=== PATIENT | male | born 1960 | race Caucasian/White ===

== ENCOUNTER → 2017-11-07 | Outpatient (CLI) | payer OTHER | LOC: FIMAGING 16:24 | PROVIDERS: ATTEND Orthopaedic Surgery | DX: M79.605 Pain in left leg (principal); M79.89 Other specified soft tissue disorders ==

== ENCOUNTER 2018-11-17 12:38 | Inpatient (IN) | payer OTHER ==
[2018-11-17] MEDS ORDERED: ACETAMINOPHEN 325 MG TAB PO PRN (14:24)
[2018-11-17] MEDS ORDERED: ONDANSETRON DISINTEGRATING 4 MG TAB PO PRN (14:24)
[2018-11-17] MEDS ORDERED: ONDANSETRON 4 MG/2 ML VIAL IVP PRN (14:24)
[2018-11-17] MEDS ORDERED: oxyCODONE IR 5 MG TAB PO PRN (14:24)
[2018-11-17] MEDS ORDERED: NS 1,000 ML IV ONE (14:32)
[2018-11-17] MEDS ORDERED: POTASSIUM CL 20 MEQ/15 ML UDCUP PO ONE (14:42)
[2018-11-17] MEDS ORDERED: IBUPROFEN 600 MG TAB PO PRN (15:27)
[2018-11-17] MEDS ORDERED: IBUPROFEN 600 MG TAB PO ONE (15:29)
--- NOTE | 2018-11-17 15:29 | PDGENHP ---
History and Physical - Chief Complaint chills, myalgias, hematuria - History of Present Illness 58 yo male with h/o CAD and prior CA 10 yrs ago with LAD and diagonal stents presents to ED from urgent care with hematuria, chills and myalgias. His symptoms started 3 weeks ago with decreased urine flow and difficulty emptying his bladder. He then developed CP and he went to [facility], where a cath revealed in- stent restenosis. He thinks he had a fresh stent, but per my conversation with Cards, they did just balloon angioplasty. He has been on ASA 81 mg and Plavix since then. His urinary flow problems persisted and 2 days prior to arrival, he developed fever of 101. Fevers persisted over past 2 days. He also endorses dysuria and urinary frequency. He denies focal flank pain. No N/V. He noted "chunks" of blood in his bladder this morning and fever to 102. He went to urgent care where his UA showed wbc's "too many to count", along with hematuria and 4+ bacteria. He received 1 g IV Ceftriaxone and was sent to [facility] for direct admission. Upon arrival, he is febrile to 39.2 with mild tachycardia , but BP is stable. History Information - Allergies/Home Medication List Allergies/Adverse Reactions: codeine [Codeine] Allergy (Mild, Verified 07/19/10 15:05) ITCHY Home Medications: Clopidogrel Bisulfate [Plavix (RX)] 75 mg PO DAILY 02/17/13 [Last Taken 11/17/18 ] ALPRAZolam [Xanax 1 MG (*)] 0.5 - 1 mg PO DAILY PRN 11/17/18 [Last Taken ] Acetaminophen [Tylenol ES 500 mg (*)] 1,000 mg PO Q3HRS 11/17/18 [Last Taken 12/31 05:00] Aspirin EC [Aspirin EC 81 mg (*)] 81 mg PO DAILY 11/17/18 [Last Taken 11/17/18] Atorvastatin Calcium [Lipitor 40 mg (*)] 40 mg PO DAILY 11/17/18 [Last Taken 12/31] Metoprolol Tartrate [Lopressor 25 mg (*)] 12.5 mg PO BID 11/17/18 [Last Taken ] Nitroglycerin [Nitrostat] 0.4 mg SL Q5M PRN 11/17/18 [Last Taken Unknown] Tamsulosin HCl [Flomax 0.4 MG (*)] 0.4 mg PO BIDMEAL 11/17/18 [Last Taken ] I have personally reviewed and updated: family history, medical history, social history, surgical history - Past Medical History coronary artery disease, hyperlipidemia Additional medical history: CAD with h/o CA 2008, LAD and diagonal stents at that time. Balloon angioplasty at [facility] 10/2018 for in-stent stenosis. H/O prostatitis - Surgical History Reports: coronary stent Additional surgical history: knee surgery 2018. back surgery L3-L4 - Family History Positive for: non-pertinent - Social History Smoking Status: Former smoker Alcohol Use: None Drug Use: None Additional social history: Quit tobacco 1-2 weeks ago. 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 Review of Systems Review of Systems: ROS: 10pt was reviewed & negative except for what was stated in HPI & below Physical Exam Physical Exam: Temp Pulse Resp BP Pulse Ox 39.3 C H 106 H 18 149/77 H 91 L 11/17/18 14:12 11/17/18 14:12 11/17/18 14:12 11/17/18 14:12 11/17/18 14:12 Constitutional: no apparent distress Eyes: PERRL Ears, Nose, Mouth, Throat: moist mucous membranes Cardiovascular: regular rate and rhythym, no murmur, rub, or gallop Respiratory: no respiratory distress, clear to auscultation Gastrointestinal: normoactive bowel sounds, soft, non-tender abdomen Skin: warm Musculoskeletal: full muscle strength Neurologic: AAOx3 Psychiatric: interacting appropriately Lab Data & Imaging Review VBG Lactic Acid 1.0 mmol/L (0.7-2.1) 11/17/18 14:50 Assessment & Plan Assessment: Sepsis 2/2 urinary source - SIRS criteria: HR, Temp, UTI. Possibly obstructive prostate symptoms / prostatitis with gross hematuria. UA at [facility] [place] [place] showed marked pyuria, hematuria, 4+ bacteria. He received 1 g IV Ceftriaxone at [facility] [place] [place]. -send BCx's, UA and UCx -send lactate (nl) and PCT (pending) -cont Ceftriaxone, received first dose at [facility] [place] [place] -renal u/s now to evaluate for SOLORZANO -will likely need to place villarreal for hematuria with clots, will await u/s -cont flomax -Dr. Tello, urologist, consulted from [facility] CAD with h/o CA - prior LAD and diagonal stents. Pt thinks he had fresh stent at [facility] 2 weeks ago when he presented with CP and cath showed in-stent stenosis. I discussed the case with Dr. David Perez, [facility] the [facility], who clarified he had balloon angioplasty to a diagonal lesion, but no new stent. He has been on ASA and plavix since then. He is chest pain free here. -cont ASA plus Plavix (acknowledge hematuria, but risk of in-stent thrombosis outweighs bleeding risk currently with nl hgb and stable vitals) -cont BB, statin Hyperlipidemia - statin DVT PPLX - defer pharm with hematuria and DAPT, SCD's Full code Dispo - admit to inpt, anticipate >48 hrs hospitalization for management of sepsis, UTI, hematuria
[2018-11-17] MEDS ORDERED: NITROGLYCERIN 0.4 MG BTL SL PRN (15:44)
[2018-11-17] MEDS ORDERED: ALPRAZolam 1 MG TAB PO PRN (15:44)
[2018-11-17] MEDS: TAMSULOSIN HCL 0.4 MG CAP PO SCH (16:07)
--- NOTE | 2018-11-17 18:33 | PDMN ---
Medical Necessity Medical necessity: [facility] M160 sepsis and other febrile illness: sepsis 2/2 urinary source SIRS criteria: tachycardia, fever, UTI. poss obstructive prostate symptoms, prostatitis with gross hematuria, anticipate > 2 MN ongoing med nec care, further monitoring eval and tx.
[2018-11-17] MEDS: METOPROLOL TARTRATE 25 MG TAB PO SCH (20:03)
[2018-11-17] MEDS: HYDROCODONE/APAP 5/325 TAB PO PRN (20:03)
--- NOTE | 2018-11-17 21:53 | HOSPPROG ---
Hospitalist Progress Note Assessment/Plan: Sepsis 2/2 urinary source - SIRS criteria: HR, Temp, UTI. Possibly obstructive prostate symptoms / prostatitis with gross hematuria. [place] [facility] [place] pyuria, hematuria, 4+ bacteria. He received 1 g IV Ceftri[place] [facility] [place] -send BCx's, UA and UCx -send lactate (nl) and PCT (pending) -cont Ceftriaxone, received [place] dose [place] [facility] [place] -renal u/s now to evaluate for SOLORZANO -will likely need to place villarreal for hematuria with clots, will await u/s -cont flomax -Dr. Tello, urologist, consulted from [facility] with h/o DC - prior LAD and diagonal stents. Pt thinks he had fresh stent at [facility] 2 weeks ago when he presented with CP and cath showed in-stent stenosis. I discussed the case with Dr. David Perez, [facility], who clarified he had balloon angioplasty to a diagonal lesion, but no new stent. He has been on ASA and plavix since then. He is chest pain free here. -cont ASA plus Plavix (acknowledge hematuria, but risk of in-stent thrombosis outweighs bleeding risk currently with nl hgb and stable vitals) -cont BB, statin Hyperlipidemia - statin DVT PPLX - defer pharm with hematuria and DAPT, SCD's Full code Objective: Vital Signs Temp Pulse Resp BP Pulse Ox 36.7 C 81 18 129/72 H 92 11/17/18 20:00 11/17/18 20:00 11/17/18 20:00 11/17/18 20:00 11/17/18 20:00 11/16/18 11/17/18 11/18/18 06:59 06:59 06:59 Intake Total 1000 Balance 1000 ICD10 Worksheet Patient Problems: Problems Problem Status Onset CAD - Coronary arteriosclerosis Active
[2018-11-18] MEDS: HYDROCODONE/APAP 5/325 TAB PO PRN ×4 (02:41→20:49)
[2018-11-18 04:58] LABS: PLATELET COUNT 135 10^3/uL (150-400)
[2018-11-18] MEDS: ATORVASTATIN CALCIUM 40 MG TAB PO SCH (08:33)
[2018-11-18] MEDS: ASPIRIN EC 81 MG TAB PO SCH (08:33)
[2018-11-18] MEDS: METOPROLOL TARTRATE 25 MG TAB PO SCH ×2 (08:33→20:49)
[2018-11-18] MEDS: TAMSULOSIN HCL 0.4 MG CAP PO SCH ×2 (08:33→17:15)
[2018-11-18] MEDS: CLOPIDOGREL BISULFATE 75 MG TAB PO SCH (08:33)
[2018-11-18] MEDS ORDERED: ENOXAPARIN 40 MG/0.4 ML SYR SC SCH (09:00)
--- NOTE | 2018-11-18 12:03 | ASMTCMCOM ---
CM Note CM Note Notes: Pt is a 58 y/o man admitted for prostate infection. Pt will most likely d/c independent when medically stable. No therapies ordered at this time. CM available for changes. Plan: Independent Date Signed: 11/18/2018 12:03 PM Electronically Signed By:PAN Fernandez
--- NOTE | 2018-11-18 16:59 | HOSPPROG ---
Hospitalist Progress Note Assessment/Plan: DIAGNOSES: * Acute sepsis * Acute complicated urinary tract infection * Gross hematuria likely due to above * History of coronary artery disease with [place] and stents, recent InStent restenoses treated elsewhere with balloon angioplasty; aspirin and Plavix I reviewed the patient's case in detail today with Dr. Tello of Urology, she does not feel that he has prostatitis but agrees with current plan for treating infection. 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: Exam: alert oriented skin warm dry color ok resps not labored lungs clear BSs heart regular abd soft nondistended nontender, bowel sounds present No CVA or flank tenderness limbs warm, no edema iv site ok Laboratory data: Slightly low platelets otherwise normal CBC Stable basic met panel Microbiology data: All cultures pending at this time Objective: Vital Signs Temp Pulse Resp BP Pulse Ox 38.6 C H 99 16 97/84 H 93 11/18/18 15:40 11/18/18 15:40 11/18/18 15:40 11/18/18 15:40 11/18/18 15:40 Laboratory Results 11/18/18 04:16 11/18/18 04:16 11/17/18 11/18/18 11/19/18 06:59 06:59 06:59 Intake Total 1500 Output Total 1000 1150 Balance 500 -1150 - Time Spent With Patient Time Spent with Patient: greater than 35 minutes Time Spent with Patient: Greater than 35 minutes spent on this patients care, greater than 50% of time spent counseling, educating, and coordinating care regarding the above mentioned plan. ICD10 Worksheet Patient Problems: Problems Problem Status Onset CAD - Coronary arteriosclerosis Active
[2018-11-18] MEDS ORDERED: NS 1,000 ML IV SCH (18:15)
--- NOTE | 2018-11-18 20:40 | PDCONSULT ---
Chute Operator Note: RFC fevers, UTI HPI 58M w hx prostatitis in past referred to [facility] [facility] yesterday for fevers, blood in urine. Overall malaise for past 3 days, w on and off fevers. Hx prostatitis 5 years ago requiring extended duration of abx. [place] 1 mo ago similiar sx of prostatitis, self treating sx w flomax and Augmentin. Went to see his PCP, Dr. Shaw and mentioned he was having CP, and then referred to [facility] w subsequent heart cath/angioplasty. Currently feeling much better. Urine not bloody anymore, but still cloudy yellow. Prostate doesn't hurt. No pain w void. PMH CAD, BPH, prostatitis ROS 10pt ros performed, as stated in HPI, otherwise neg. PE Gen NAD A&O CV regular Lungs Normal effort Abd soft Ext warm, bilaterally descended testicles, Nontender, no masses. Circ phallus, no lesion. IQRA: 60+gram prostate nontender, no lesions or masses, or palpable abnormality. ERLINDA: no obstructive uropathy identified - no hydronephrosis, moderate PVR of 75. A/P UTI BPH Doing much better after receiving abx/IVF. Recommend following in hospital until 24H wo fevers. Follow Urine and Blood cx and adjust abx for PO. Home w at least 2 weeks abx. Needs cysto in my office to assess BPH, etiology for recurrent UTI. My office will contact him for appt. Please call me w questions. Karen Tello MD Urologic Surgery [facility]
[2018-11-19] MEDS: METOPROLOL TARTRATE 25 MG TAB PO SCH (09:11)
[2018-11-19] MEDS: ATORVASTATIN CALCIUM 40 MG TAB PO SCH (09:11)
[2018-11-19] MEDS: ASPIRIN EC 81 MG TAB PO SCH (09:11)
[2018-11-19] MEDS: CLOPIDOGREL BISULFATE 75 MG TAB PO SCH (09:11)
[2018-11-19] MEDS: TAMSULOSIN HCL 0.4 MG CAP PO SCH (09:11)
[2018-11-19] MEDS: HYDROCODONE/APAP 5/325 TAB PO PRN (12:21)
[2018-11-19 15:32] VITALS: BP 123/78
--- NOTE | 2018-11-19 16:22 | PDDCSUM ---
Discharge Summary Discharge Summary: DISCHARGE DIAGNOSES: * complicated urinary tract infection * prostatic enlargement and suspected urinary retention CONSULTANTS: Dr. Karen Tello Urology PROCEDURES: Abdomen pelvis ultrasound HOSPITAL COURSE SUMMARY: This patient has presented with rigors and high fevers and was found to have urinary tract infection with gram-negative candelario which is not yet identified completely. There is question of whether he might have prostatitis and was seen by Dr. Knight who thought he had prostatic enlargement but not prostatitis. Ultrasound showed no evidence of hydronephrosis or stones or abscess. The patient was treated with empiric Rocephin to which she has responded very nicely. At this point he is stable for discharge to home. He will go home on oral antibiotics. He does not have any definite contraindications or High risk factors for quinolone so he is going home on Levaquin 750 mg 4 times daily. He is aware that there is a small chance of resistance this antibiotic and he should report any fevers to Dr. Cotto or return to the ER if necessary. With prostatic enlargement and urinary tract infection he will need ongoing follow-up with Dr. Tello in the clinic PENDING TEST RESULTS: Final identification of gram-negative in urine culture MEDICATION CHANGES: Addition of Levaquin for 750 mg daily 4 days FOLLOW-UP PLAN: With Dr. Tello in Urology Clinic in 1-2 weeks Greater than 35 minutes bedside and care coordination time today
--- NOTE | 2018-11-22 12:39 | PQFORM ---
PHYSICIAN QUERY FORM Needs Your Response This query form is being sent to you to assure this patient record is coded properly. Please respond to the question below: QUARRY SUPERVISOR QUESTION: Dr. Fulton, The diagnosis of Sepsis is documented in the Progress Notes dated 11/17/18 and 11/18/18.~ Would this be appropriate as an additional diagnosis on the discharge summary? Yes No Other Clinically Undetermined Many thanks, Tona Dolan [employer] [facility]/Coding Department INSTRUCTIONS FOR RESPONSE: Answer question by clicking on the "Edit Document" button. Move cursor to area below the stars. When complete, hit "Save." Click on the "Sign" button, then click "Sign" again. Type in your PIN and hit "Enter." Would include sepsis as a diagnosis MTDD
== END 2018-11-19 17:13 | disposition home or self-care (01) | DRG 872 ==
LOC: OBSVTOIN 13:49 → F3E 13:49
PROVIDERS: ADMIT Hospitalist; ATTEND Internal Medicine
DX: A41.9 Sepsis, unspecified organism (principal); N39.0 Urinary tract infection, site not specified; N40.1 Benign prostatic hyperplasia with lower urinary tract symptoms; R33.8 Other retention of urine; B96.89 Other specified bacterial agents as the cause of diseases classified elsewhere; I25.10 Atherosclerotic heart disease of native coronary artery without angina pectoris; I25.2 Old myocardial infarction; E78.5 Hyperlipidemia, unspecified; Z95.5 Presence of coronary angioplasty implant and graft; Z87.891 Personal history of nicotine dependence; Z87.898 Personal history of other specified conditions
CPT/HCPCS: 84154-90; J0696